=== PATIENT | female | born 1955 | race Caucasian/White ===

== ENCOUNTER 2023-07-02 08:32 | Emergency (ER) | payer OTHER ==
[~2023-07-02] VITALS: Ht 157.5 cm; Wt 78.0 kg
[2023-07-02 08:55] VITALS: O2SAT 100
[2023-07-02] MEDS ORDERED: IBUPROFEN 600MG TABLET PO ONE (11:30)
[2023-07-02] MEDS ORDERED: LIDOCAINE 5% PATCH TOP SCH (11:30)
[2023-07-02] MEDS ORDERED: NAPR220C61 MT (11:49)
[2023-07-02] MEDS ORDERED: LIDO700A15 TP (11:49)
[2023-07-02 11:57] VITALS: BP 138/70; PULSE 70; RESP 15; TEMP 97.8
== END 2023-07-02 11:58 | disposition home or self-care (01) ==
LOC: ER 09:03
DX: M54.50 Low back pain, unspecified (principal)
CPT/HCPCS: 73521; 99283